=== PATIENT | female | born 2000 | race African-American/Black ===

== ENCOUNTER 2022-05-26 14:29 | Emergency (ER) | payer OTHER ==
[~2022-05-26] VITALS: Ht 170.2 cm; Wt 82.8 kg
[2022-05-26] MEDS ORDERED: ACETAMINOPHEN 500 MG TAB PO ONE (20:00)
[2022-05-26] MEDS ORDERED: metroNIDAZOLE (FLAGYL) 500MG TABLET PO ONE (21:20)
[2022-05-26 21:53] LABS: GC DNA AMPLIFICATION NEGATIVE (NEGATIVE)
[2022-05-26] MEDS ORDERED: METR-265 PO (22:26)
[2022-05-26] MEDS ORDERED: FLUC150T9 PO (22:31)
[2022-05-26 22:33] VITALS: BP 124/68
== END 2022-05-26 22:36 | disposition home or self-care (01) ==
LOC: M ED 14:29
DX: N89.8 Other specified noninflammatory disorders of vagina (principal); N83.01 Follicular cyst of right ovary

== ENCOUNTER 2023-11-19 20:27 | Emergency (ER) | payer OTHER ==
[~2023-11-19] VITALS: Ht 167.6 cm; Wt 89.6 kg
[~2023-11-19 20:27] MED LIST: FLUC150T9 PO; METR-265 PO
[2023-11-19] MEDS ORDERED: AMIT-253 PO (20:56)
[2023-11-19 21:17] LABS: BASO % 0.4 % (0.0-1.0); EOS # 0.3 10^3/uL (0.0-0.5); EOS % 3.2 % (0.0-3.0); HEMATOCRIT 39.8 % (36.0-47.0); HEMOGLOBIN 12.9 g/dl (12.0-15.5); LYMPH # 4.3 10^3/uL (1.5-5.0); LYMPH % 43.6 % (24.0-44.0); MEAN CORPUSCULAR HEMOGLOBIN 26.7 pg (27.0-33.0); MEAN CORPUSCULAR HGB CONC 32.4 g/dl (32.0-36.5); MEAN CORPUSCULAR VOLUME 82.2 fl (80.0-96.0); MONO # 0.6 10^3/uL (0.0-0.8); MONO % 5.9 % (2.0-8.0); NEUTROPHILS # 4.6 10^3/uL (1.5-8.5); NEUTROPHILS % 46.7 % (36.0-66.0); PLATELET COUNT, AUTOMATED 291 10^3/uL (150-450); RED BLOOD COUNT 4.84 10^6/uL (4.00-5.40); WHITE BLOOD COUNT 9.8 10^3/uL (4.0-10.0)
[2023-11-19 21:43] LABS: ALBUMIN 3.6 G/DL (3.2-5.2); ALKALINE PHOSPHATASE 126 U/L (46-116); ALT/SGPT 15 U/L (7.0-40); AST/SGOT 15 U/L (<34); BILIRUBIN,TOTAL 0.2 MG/DL (0.3-1.2); BLOOD UREA NITROGEN 13 MG/DL (9-23); CARBON DIOXIDE LEVEL 25 MMOL/L (20-31); CHLORIDE LEVEL 110 MMOL/L (98-107); CREATININE FOR GFR 0.91 MG/DL (0.55-1.30); GLOMERULAR FILTRATION RATE > 60.0 (>60); GLUCOSE, FASTING 100 MG/DL (60-100); POTASSIUM SERUM 4.3 MMOL/L (3.5-5.1); SODIUM LEVEL 141 MMOL/L (136-145); TOTAL PROTEIN 6.9 G/DL (5.7-8.2)
[2023-11-19] MEDS: KETOROLAC 30 MG/ML 1ML VIAL IV ONE (22:40)
[2023-11-19 23:57] LABS: Trichomonas vaginalis (AMP) NOT DETECTED (NEGATIVE)
[2023-11-20 00:21] LABS: GC DNA AMPLIFICATION NEGATIVE (NEGATIVE)
[2023-11-20] MEDS ORDERED: ISOVUE-370 76% 100ML VIAL As Ordered ONE (00:38)
[2023-11-20] MEDS ORDERED: IBUP-1022 PO (01:36)
[2023-11-20] MEDS ORDERED: MIRA3350 PO (01:38)
[2023-11-20 01:53] VITALS: BP 131/71; TEMP 98.1; O2SAT 100
== END 2023-11-20 01:57 | disposition home or self-care (01) ==
LOC: M ED 20:27
DX: N83.201 Unspecified ovarian cyst, right side (principal); K59.00 Constipation, unspecified; F17.290 Nicotine dependence, other tobacco product, uncomplicated
CPT/HCPCS: 74177; 76830; 76856; 80053; 81001; 84702; 85025; 87210; 87661; 87810; 87850; 93976; 96374; 99284; J1885; Q9967